=== PATIENT | male | born 1960 | race Caucasian/White ===

== ENCOUNTER 2019-07-19 22:56 | Emergency (ER) | payer OTHER, SELFPAY ==
[2019-07-19 23:11] VITALS: BP 134/89; PULSE 85; RESP 20; TEMP 36.9; O2SAT 96
[2019-07-20 00:08] VITALS: BP 130/82; PULSE 88; RESP 20; O2SAT 100
--- NOTE | 2019-07-20 00:31 | ED.WOUNDLAC ---
HPI - Wound/Laceration General Chief Complaint: Wound/Laceration Stated Complaint: left thumb injury Time Seen by Provider: 07/20/19 00:21 Source: patient and RN notes reviewed Mode of arrival: ambulatory Limitations: no limitations History of Present Illness HPI narrative: Pt is a 58 y/o male presenting to the ED c/o laceration. 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 Pt states the laceration was initially gushing blood but notes the bleeding has since stopped. Pt reports his Tetanus is UTD. Onset (ago): unknown (Earlier tonight) Place: work Patient tetanus UTD: Yes Associated symptoms: none Related Data Allergies Allergy/AdvReac Type Severity Reaction Status Date / Time No Known Allergies Allergy Verified 07/20/19 00:10 Review of Systems Review of Systems: All systems reviewed & are unremarkable except as noted in HPI and below Integumentary/Breasts: Skin/Breast: Reports wounds (Laceration to lt thumb) PMFSH Past Medical History Medical History No significant past medical history Surgical History Surgical History No significant past surgical history Social History Social History Smoking status: Unknown if ever smoked Gender identity (if verbalized by the patient): Male Exam Narrative: Exam Narrative: GENERAL: Well-appearing, well-nourished, and in no acute distress. HEAD: Normocephalic, atraumatic. EYES: PERRLA and EOMI. ENT: Nares clear, Mucous membranes moist. NECK: Supple. CHEST: Clear to auscultation. No respiratory distress. HEART: Regular rate and rhythm. No murmur heard. Normal peripheral pulses. EXTREMITIES: Normal range of motion. No edema. laceration on the left thumb about 1 cms long SKIN: Warm, dry, no rash. NEURO: No focal deficits. Alert and oriented x3. PSYCH: Normal mood and affect. Course Vital Signs Vital signs: Vital Signs Temperature 36.9 C 07/19/19 23:11 Pulse Rate 85 07/19/19 23:11 Respiratory Rate 20 07/19/19 23:11 Blood Pressure 134/89 07/19/19 23:11 Pulse Oximetry 96 07/19/19 23:11 Temperature 36.9 C 07/19/19 23:11 Pulse Rate 88 07/20/19 00:08 Respiratory Rate 20 07/20/19 00:08 Blood Pressure 130/82 07/20/19 00:08 Pulse Oximetry 100 07/20/19 00:08 Procedures Laceration Laceration 1: Date: 07/20/19 Time: 01:24 Site: upper extremity and other (left Thumb) Side (If applicable): left Size (cm): 1 Description: linear Depth: simple, single layer Local Anesthetic: lidocaine 1% Amount of anesthesia used (mL): 3 ====== Skin Level ====== Skin layer closed with: nylon Size (cm): 4-0 Number of sutures: 2 ====== Subcutaneous Layer ====== ====== Muscle Layer ====== ====== Tendon Layer ====== Discharge Plan Discharge Clinical Impression: Laceration Patient Disposition: Home, Self-Care Condition: Stable Instructions: Laceration (ED) Additional Instructions: Sutures off 7 to 10 days Follow-up/Referrals: Benjamin Serrano MD [Physician] - UNKNOWN,DOCTOR [Primary Care Provider] - Stand Alone Forms: Work/School Release IP Time of Disposition: :27
[2019-07-20 01:34] VITALS: BP 128/93; PULSE 78; RESP 20; O2SAT 99
== END 2019-07-20 01:37 | disposition home or self-care (01) ==
PROVIDERS: Emergency Provider Family Medicine
DX: S61.012A Laceration without foreign body of left thumb without damage to nail, initial encounter (principal); W27.8XXA Contact with other nonpowered hand tool, initial encounter
CPT/HCPCS: 12001; 99282